=== PATIENT | male | born 1995 | race Two or more races ===

== ENCOUNTER → 2017-02-18 | Day surgery (SDC) | payer OTHER ==
[~2017-02-18] VITALS: Ht 182.9 cm; Wt 90.7 kg
[~2017-02-18] MED LIST: ACETAMINOPHEN/CODEINE 12.5 ML UDC As Ordered ONE; ACETAMINOPHEN/CODEINE 12.5 ML UDC PO PRN; EPINEPHrine 1MG/ML INJ 30ML MD-VIAL As Ordered ONE; HYDROmorphone HCL 2 MG/ML 1ML VIAL (J1170) As Ordered ONE; LABETALOL HCL 100 MG/20 ML VIAL As Ordered ONE; LIDOCAINE 2% INJ 100 MG/5 ML SDV (FOR ANES.) As Ordered ONE; LIDOCAINE W/EPINEPHRINE 1% 20ML VIAL As Ordered ONE; LR 1,000 ML IV SCH; METHYLENE BLUE 0.5% (5MG/ML) 10 ML AMP (PROVAYBLUE)(Q9968 PER 1MG) As Ordered ONE; METOCLOPRAMIDE INJ 10MG/2ML VIAL (J2765) As Ordered ONE; METOCLOPRAMIDE INJ 10MG/2ML VIAL (J2765) IV PRN; MIDAZOLAM INJ 2 MG/2 ML VIAL (J2250) As Ordered ONE; ONDANSETRON 4MG/2ML VIAL (J2405) As Ordered ONE; ONDANSETRON 4MG/2ML VIAL (J2405) IV PRN; OXYMETAZOLINE NASAL SPRAY (AFRIN) As Ordered ONE; PERCOCET 5MG/325MG TAB PO PRN; PROPOFOL 500 MG/50 ML VIAL As Ordered ONE; THROMBIN SOLN 5,000 UNITS VIAL As Ordered ONE; dexameTHASONE 4 MG/ML 1ML VIAL (J1100) IV ONE; fentaNYL 100 MCG/2 ML INJECTION (J3010) As Ordered ONE; fentaNYL 100 MCG/2 ML INJECTION (J3010) IV PRN
[2017-02-18 14:00] VITALS: BP 140/76
--- NOTE | 2017-03-03 18:43 | RO ---
DATE OF PROCEDURE: 02/18/2017 PREPROCEDURE DIAGNOSIS: Chronic tonsillitis and right nasal mass. POSTOPERATIVE DIAGNOSIS: Chronic tonsillitis and right nasal mass. PROCEDURE PERFORMED: Tonsillectomy and nasal endoscopy with excision of the mass from the right nasal septum. SURGEON: Ruslan Madden MD LADDER OPERATOR: ANESTHESIA: General. CLINICAL PREAMBLE: This 22-year-old man presented to the office with history of chronic tonsillitis. Physical examination revealed cryptic tonsils. Patient also noted a lesion in the right anterior nasal septal region. Management options including surgery listed above have been discussed. The patient understood and consented to the procedure. DESCRIPTION OF PROCEDURE: The patient was identified in preoperative holding and brought to the operating room in stable condition. In supine position on the operating table, patient received general anesthesia followed by orotracheal intubation without incident. The patient was prepped and draped in the usual fashion for the procedure. Both sides of the nasal cavity were packed with pledgets soaked in 1:1000 epinephrine. After a waiting period, the pledgets were removed. Both sides of the nasal cavity were inspected. No mucosal lesions or mass lesion was noted in the posterior nasal cavity or the nasopharynx. A small mass was noted along the right anterior nasal septum inferiorly. Excision of biopsy of the lesion was then performed. Hemostasis achieved. Attention was turned to perform the tonsillectomy. The Linette-Cornell mouth gag was inserted and suspended. The right tonsil was medialized using curved Allis forceps. Mucosal incision was made over the superior pole of the right tonsil using the Coblator wand set at 7 for Coblation. The tonsillar capsule was identified, and dissection was carried out along this plane to excise the right tonsil. The left tonsil was then similarly dissected out. At the end of the procedure, both tonsil beds were free of bleeding. Estimated blood loss was less than 10 mL. No complication was encountered. Sponge and instruments counts were correct at the end of the procedure. General anesthesia was reversed, and patient was extubated and brought to the recovery room in stable condition.
== END | disposition home or self-care (01) ==
LOC: M SDC 07:03
PROVIDERS: ATTEND Otolaryngology
DX: J35.01 Chronic tonsillitis (principal); J34.89 Other specified disorders of nose and nasal sinuses; Z88.0 Allergy status to penicillin
CPT/HCPCS: 31237; 42826; 88302; 88305; J1100; J1170; J2250; J2405; J2765; J3010; Q9968

== ENCOUNTER → 2017-04-07 | Outpatient (REF) | payer OTHER | LOC: M SMT 08:30 | PROVIDERS: ATTEND Urology | DX: Z30.2 Encounter for sterilization (principal) ==